=== PATIENT | male | born 1985 | race Caucasian/White ===

== ENCOUNTER 2023-11-26 10:42 | Emergency (ER) | payer MEDICARE, MEDICAID, SELFPAY ==
--- NOTE | ~2023-11-26 | XR_ITS ---
EXAMINATION: XR CHEST CLINICAL INFORMATION: Left frontal lower rib pain and chest pain beginning last night. COMPARISON: None available. TECHNIQUE: 2 views of the chest were obtained. FINDINGS: Heart, mediastinum, pulmonary vessels and lung manley within normal limits. Bony structures are intact. XR/XR chest 2V IMPRESSION: No acute cardiopulmonary disease
[2023-11-26 10:46] VITALS: BP 145/103; PULSE 109; RESP 19; TEMP 36.6; O2SAT 98; BMI 44.6
--- NOTE | 2023-11-26 10:58 | PC.NURSE ---
pt going directly to radiol. from [facility]
--- NOTE | 2023-11-26 11:07 | ECG_ITS ---
Test Reason : LEFT SIDED PAIN Blood Pressure : / mmHG Vent. Rate : 112 BPM Atrial Rate : 112 BPM P-R Int : 138 ms QRS Dur : 070 ms QT Int : 324 ms P-R-T Axes : 041 022 032 degrees QTc Int : 442 ms Artifact in tracing Sinus tachycardia possible Nonspecific ST and T wave abnormality inferior leads Otherwise normal ECG When compared to the previous EKG of 13 aug 2019, possible inferior changes but could also be related to artifact Referred By: Liliana Ramírez Electronically Signed By:DEEPTI MAXWELL
--- NOTE | 2023-11-26 11:08 | ED.GENADULT ---
HPI - General Adult General Chief complaint: General Medical Stated complaint: L Side Pain Time Seen by Provider: 11/26/23 10:57 Source: patient Mode of arrival: ambulatory Limitations: no limitations and language barrier ( [place]-speaking) History of Present Illness HPI narrative: patient reports 1 week of left upper quadrant abdominal pain, intermittent nausea associated with this. Had been progressively worsening. He does admit that last night he noticed he was developing a cough, which he attributes to his seasonal allergies, it is not clear whether the cough tends to make this pain worse or not. he admits to having tactile fever last night. When asked he does state he is having mid anterior chest pain as well, without shortness breath. He also reports urinary frequency and my urine smells sweet , denies hematuria or dysuria. Denies any known past medical history. Related Data Previous Rx's ?Medication ?Instructions ?Recorded famotidine 20 mg tablet 20 mg PO DAILY #7 tabs 11/26/23 sucralfate 1 gram tablet (Carafate) 1 g PO BID #14 tabs 11/26/23 Allergies Allergy/AdvReac Type Severity Reaction Status Date / Time shrimp Allergy Severe ANGIOEDEMA Verified 11/26/23 10:50 PEPPERONI Allergy Severe ANGIOEDEMA Uncoded 11/26/23 10:50 Review of Systems Review of Systems: Yes all other systems are reviewed and are negative PMFSH Past Medical History Attestation statement: The following information was validated with the patient. Source: old records reviewed Social History Social History Smoked in Last 30 Days: No Use of substances other than those prescribed or required for medical reasons: No Advance Directives: No Advance Directives Information Provided: Yes Physical Exam ED Vital Signs: Vital Signs - 24 hr 11/26/23 10:46 11/26/23 13:26 11/26/23 14:37 Temperature 98 F 98.3 F Pulse Rate 109 H 87 87 Respiratory Rate 19 18 18 Blood Pressure 145/103 H 121/81 121/81 Pulse Oximetry 98 98 98 Oxygen Delivery Method Room Air Room Air Room Air BMI result Body Mass Index 44.6 Appearance: Alert.?Oriented to person, place and time. No acute distress.?Normal affect. Eyes: Pupils equal, round and reactive to light.? ENT: Pharynx normal.?? Neck: Normal inspection.? Neck supple.?? CVS: Heart sounds normal. Mild tachycardia? Pulses normal.?? Respiratory: No respiratory distress.? Lung sounds clear to auscultation bilaterally?? Abdomen: Soft, round, with left upper quadrant tenderness upon palpation, Normoactive bowel sounds. No pulsatile mass. no CVA tenderness Skin: Skin warm and dry.? Normal skin color.?? Extremities: No lower extremity edema.? No calf ttp? Neuro: Moves all extremities spontaneously. Sensation intact bilaterally. CN II-XII intact. No focal neuro deficits. Ambulates with normal steady gait. Course Reevaluation(s) Reevaluation #1: Serum labs are overall unremarkable. Symptoms have resolved after taking GI cocktail. Suspect pain at this time to be most likely secondary to gastritis. Tolerating oral intake. Sent prescriptions to pharmacy, recommended outpatient follow-up with primary care provider. Discussed worrisome signs and symptoms that would warrant re-evaluation in the emergency department. All questions answered. Stable for discharge. Time: 13:43 Medications Administered Discontinued Medications Generic Name Dose Route Start Last Admin Trade Name Freq PRN Reason Stop Dose Admin Al Hydroxide/Mg Hydroxide 30 ml 11/26/23 11:14 11/26/23 11:39 Magnesium Hydrox/Alum Hydrox 30 Ml Oral.Susp PO 11/26/23 11:15 30 ml ONCE ONE Administration Famotidine 20 mg 11/26/23 11:14 11/26/23 11:39 Famotidine 20 Mg Tablet PO 11/26/23 11:15 20 mg ONCE ONE Administration Lidocaine HCl 15 ml 11/26/23 11:14 11/26/23 11:39 Lidocaine Hcl Viscous 2 % 15 Ml Solution MUCOUS MEM 11/26/23 11:15 15 ml ONCE ONE Administration Medical Decision Making Medical Decision Making [place] Narrative: patient is a 38-year-old male with no reported past medical history presenting to emergency department for evaluation of left upper quadrant abdominal pain, radiating to the lateral aspect for the past week. He does admit to a cough and subjective fevers which began last night he attributes to his seasonal allergies, and also reports concern for urinary frequency. Overall he appears well, nontoxic, is afebrile. He does have left upper quadrant tenderness upon palpation. LSCTA, Mildly tachycardic.Will obtain CBC to evaluate for leukocytosis/ anemia, CMP and lipase to evaluate for abnormal electrolytes /abnormal renal function/ abnormal hepatic/biliary function, EKG and troponin to evaluate for ischemia/ACS. Chest x-ray to evaluate for consolidation/ infiltrate/ mass/ pulmonary congestion and Urinalysis. Differential Diagnosis Differential Diagnoses: The differential diagnosis associated with the presentation includes ( gastritis, gastroenteritis, pancreatitis, pleurisy, ACS, pneumonia) Admission/Observation Consideration of admission/observation: Escalation of care including admission/observation considered ( see narrative above and course narrative for further detail) Lab Data MDM Lab Attestation statement: I reviewed the patient's lab results. ( see course narrative for further detail) urinalysis is without evidence of infection, no glucosuria, trace ketonuria. No leukocytosis or anemia. High sensitive troponin is below detectable limits. Viral panel is negative. No electrolyte derangement. No CHINO. No elevated transaminases. 11/26/23 11:53 11/26/23 12:39 Labs: Lab Results 11/26/23 11/26/23 11/26/23 Range/Units 10:58 11:09 11:18 WBC RBC Hgb Hct MCV MCH MCHC RDW Plt Count MPV Immature Gran % (Auto) Neut % (Auto) Lymph % (Auto) [place] % (Auto) Eos % (Auto) Baso % (Auto) Lymph # (Auto) [place] # (Auto) Eos # (Auto) Baso # (Auto) Abs Immat Gran (auto) Absolute Neuts (auto) Absolute Nucleated RBC Nucleated RBC % (auto) Neutrophils % (Manual) Band Neutrophils % Lymphocytes % (Manual) Atypical Lymphs % (Man) Monocytes % (Manual) Eosinophils % (Manual) Basophils % (Manual) Metamyelocytes % Myelocytes % Promyelocytes % Blast Cells % (Manual) Plasma Cell % (Manual) Abs Neuts (Manual) Lymphocytes # (Manual) Atyp Lymphs # (Manual) Monocytes # (Manual) Eosinophils # (Manual) Basophils # (Manual) Metamyelocytes # Myelocytes # Promyelocytes # Blast Cells # Plasma Cell # (Manual) Nucleated RBCs Hypersegmented Neuts Smudge Cells Toxic Granulation Toxic Vacuolation Dohle Bodies Jorge Rods WBC Morphology Comment Platelet Estimate Large Platelets Giant Platelets Plt Morphology Comment RBC Morphology Polychromasia Hypochromasia Basophilic Stippling Microcytosis Macrocytosis Spherocytes Pappenheimer Bodies Sickle Cells Target Cells Tear Drop Cells Ovalocytes Stomatocytes [place] Bodies Salome Cells Acanthocytes (Spur) Rouleaux Schistocytes Sodium (135-145) mmol/L Potassium (3.3-5.1) mmol/L Chloride (96-108) mmol/L Carbon Dioxide (22-29) mmol/L Anion Gap (12-20) BUN (9-16) mg/dL Creatinine (0.5-1.4) mg/dL Estim Creat Clear Calc Estimated GFR POC Glucose 129 H (60-115) mg/dL Random Glucose (60-115) mg/dL Calcium (8.4-10.2) mg/dL Total Bilirubin (0.0-1.0) mg/dL AST (5-37) U/L ALT (0-40) U/L Alkaline Phosphatase (39-117) U/L Troponin I High Sens (<3.5-35.0) ng/L Total Protein (6.5-8.0) g/dL Albumin (3.5-5.0) g/dL Lipase (8-78) U/L Urine Color Yellow Urine Appearance Clear Urine pH 5.5 (5.0-9.0) Ur Specific [place] 1.025 (1.005-1.025) Urine Protein Negative (Neg-Trace) mg/dL Urine Glucose (UA) Negative (Negative) mg/dL Urine Ketones Trace (Negative) mg/dL Urine Blood Negative (Negative) Urine Nitrite Negative (Negative) Ur Leukocyte Esterase Negative (Negative) Influenza Type A (PCR) NEGATIVE (Negative) Influenza Type B (PCR) NEGATIVE (Negative) RSV RNA Qual (PCR) NEGATIVE (Negative) SARS-CoV-2 RNA (RT-PCR) NEGATIVE (Negative) 11/26/23 11/26/23 11/26/23 Range/Units 11:30 11:53 12:39 WBC Not Reportable 5.7 RBC TNP 4.91 Hgb TNP 14.3 Hct TNP 42.8 MCV TNP 87.2 MCH TNP 29.1 MCHC TNP 33.4 RDW TNP 12.9 Plt Count Not Reportable 242 MPV Not Reportable 10.0 Immature Gran % (Auto) Cancelled 0.2 Neut % (Auto) Cancelled 44.4 L Lymph % (Auto) Cancelled 32.9 [place] % (Auto) Cancelled 14.5 H Eos % (Auto) Cancelled 7.0 H Baso % (Auto) Cancelled 1.0 Lymph # (Auto) Cancelled 1.9 [place] # (Auto) Cancelled 0.8 Eos # (Auto) Cancelled 0.4 Baso # (Auto) Cancelled 0.1 Abs Immat Gran (auto) Cancelled 0.01 Absolute Neuts (auto) Cancelled 2.5 Absolute Nucleated RBC Not Reportable 0.000 Nucleated RBC % (auto) Not Reportable 0.0 Neutrophils % (Manual) TNP Band Neutrophils % TNP Lymphocytes % (Manual) TNP Atypical Lymphs % (Man) TNP Monocytes % (Manual) TNP Eosinophils % (Manual) TNP Basophils % (Manual) TNP Metamyelocytes % TNP Myelocytes % TNP Promyelocytes % TNP Blast Cells % (Manual) TNP Plasma Cell % (Manual) TNP Abs Neuts (Manual) TNP Lymphocytes # (Manual) TNP Atyp Lymphs # (Manual) TNP Monocytes # (Manual) TNP Eosinophils # (Manual) TNP Basophils # (Manual) TNP Metamyelocytes # TNP Myelocytes # TNP Promyelocytes # TNP Blast Cells # TNP Plasma Cell # (Manual) TNP Nucleated RBCs TNP Hypersegmented Neuts TNP Smudge Cells TNP Toxic Granulation TNP Toxic Vacuolation TNP Dohle Bodies TNP Jorge Rods TNP WBC Morphology Comment TNP Platelet Estimate TNP Large Platelets TNP Giant Platelets TNP Plt Morphology Comment TNP RBC Morphology TNP Polychromasia TNP Hypochromasia TNP Basophilic Stippling TNP Microcytosis TNP Macrocytosis TNP Spherocytes TNP Pappenheimer Bodies TNP Sickle Cells TNP Target Cells TNP Tear Drop Cells TNP Ovalocytes TNP Stomatocytes TNP [place]ars[place] Bodies TNP Salome Cells TNP Acanthocytes (Spur) TNP Rouleaux TNP Schistocytes TNP Sodium 139 (135-145) mmol/L Potassium 3.8 (3.3-5.1) mmol/L Chloride 107 (96-108) mmol/L Carbon Dioxide 27 (22-29) mmol/L Anion Gap 9 L (12-20) BUN 11 (9-16) mg/dL Creatinine 0.81 (0.5-1.4) mg/dL Estim Creat Clear Calc 151.0 Estimated GFR > 60 POC Glucose (60-115) mg/dL Random Glucose 80 (60-115) mg/dL Calcium 9.3 (8.4-10.2) mg/dL Total Bilirubin 0.4 (0.0-1.0) mg/dL AST 22 (5-37) U/L ALT 25 (0-40) U/L Alkaline Phosphatase 116 (39-117) U/L Troponin I High Sens < 2.7 (<3.5-35.0) ng/L Total Protein 8.5 H (6.5-8.0) g/dL Albumin 3.8 (3.5-5.0) g/dL Lipase 22 (8-78) U/L Urine Color Urine Appearance Urine pH (5.0-9.0) Ur Specific [place] (1.005-1.025) Urine Protein (Neg-Trace) mg/dL Urine Glucose (UA) (Negative) mg/dL Urine Ketones (Negative) mg/dL Urine Blood (Negative) Urine Nitrite (Negative) Ur Leukocyte Esterase (Negative) Influenza Type A (PCR) (Negative) Influenza Type B (PCR) (Negative) RSV RNA Qual (PCR) (Negative) SARS-CoV-2 RNA (RT-PCR) (Negative) Independent Interpretation I performed an independent interpretation of an: EKG and Plain X-Ray ( no infiltrate, no pleural effusions) Interpretation: Rate: 112 Rhythm:? sinus tachycardia Normal P waves.? Normal SO.?? Normal QRS complex.?? ST T wave :?? no ST elevation, no ST depression qTC: 442 prior studies:? August 2019 The study has been interpreted contemporaneously by me. Radiology Impression Discussion of test interpretation with radiology: I have reviewed the radiologist's reading. Radiologist Impression: XR/XR chest 2V IMPRESSION: No acute cardiopulmonary disease Discharge Plan Discharge Clinical Impression: Gastritis Patient Disposition: Home, Self-Care Instructions: Gastritis (ED) Additional Instructions: take the medications as prescribed which were sent to your pharmacy. Contact your primary care provider to arrange for a follow-up visit within 3 days. Return back to emergency department any new or worsening symptoms or concerns. Prescriptions: New sucralfate [Carafate] 1 gram tablet 1 g PO BID Qty: 14 0RF famotidine 20 mg tablet 20 mg PO DAILY Qty: 7 0RF Referrals: Derek Cuellar MD [Primary Care Provider] - Interventions: ED Discharge Assessment Last Done: 11/26/23 14:37 Discharge Date/Time: 11/26/23 14:40 Print Language: [place]
[2023-11-26 11:14] LABS: Glucose, Whole Blood 129 mg/dL (60-115)
[2023-11-26 11:30] LABS: Appearance Urine Clear; Color Urine Yellow; Glucose Urine UA Negative (Negative); Leukocyte Esterase Urine Negative (Negative); Nitrite Urine Negative (Negative); PH 5.5 (5.0-9.0); Specific Gravity - Urine 1.025 (1.005-1.025); Urine Blood Negative (Negative); Urine Ketones Trace mg/dL (Negative); Urine Protein Negative (Neg-Trace)
--- NOTE | 2023-11-26 11:30 | PC.NURSE ---
pt put finger through the yellow label on his urine cup and stuck finger with needle. scant bleeding. 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 able to move finger w/o issue. +CMS
[2023-11-26] MEDS: Lidocaine HCl Viscous 2 % 15 ML SOLUTION MUCOUS MEM (11:39)
[2023-11-26] MEDS: Magnesium Hydrox/Alum Hydrox 30 ML ORAL.SUSP PO (11:39)
[2023-11-26] MEDS: Famotidine 20 MG TABLET PO (11:39)
[2023-11-26 11:52] LABS: Influenza A PCR NEGATIVE (Negative); Influenza B PCR NEGATIVE (Negative); Resp Syncy Virus RNA Qual PCR NEGATIVE (Negative); SARS COV2 PCR INHOUSE NEGATIVE (Negative)
[2023-11-26 11:58] LABS: MANUAL DIFF FLAG NO
[2023-11-26 12:02] LABS: Basophils Absolute Auto 0.1 X10*3/uL (0.0-0.2); Eosinophils Absolute Auto 0.4 X10*3/uL (0.0-0.4); Hematocrit 42.8 % (42.0-52.0); Hemoglobin 14.3 g/dl (14.0-18.0); Imm Gran Abs Auto 0.01 X10*3/uL (0.00-0.03); Imm Gran Pct Auto 0.2 % (0.0-0.4); Lymphocytes Absolute Auto 1.9 X10*3/uL (1.2-4.9); Lymphocytes Percent Auto 32.9 % (20-40); Mean Corpuscular HGB Conc 33.4 g/dl (31.0-36.0); Mean Corpuscular Hemoglobin 29.1 pg (27.0-33.0); Mean Corpuscular Volume 87.2 fL (80.0-98.0); Monocytes Absolute Auto 0.8 X10*3/uL (0.1-1.2); Monocytes Percent Auto 14.5 % (2-11); Neutrophils Absolute Auto 2.5 x10*3/uL (2.0-8.3); Neutrophils Percent Auto 44.4 % (45-73); Platelet Count 242 X10*3/uL (160-400); Red Blood Count 4.91 X10*6/uL (4.60-5.80); Red Cell Distribution Width 12.9 % (11.0-16.0); White Blood Count 5.7 X10*3/uL (4.8-10.8)
[2023-11-26 12:02] LABS: Troponin-I High Sensitivity < 2.7 ng/L (<3.5-35.0)
[2023-11-26 13:08] LABS: Alanine Aminotransferase 25 U/L (0-40); Albumin Level 3.8 g/dL (3.5-5.0); Alkaline Phosphatase 116 U/L (39-117); Anion Gap 9 (12-20); Aspartate Amino Transferase 22 U/L (5-37); Blood Urea Nitrogen 11 mg/dL (9-16); Calcium 9.3 mg/dL (8.4-10.2); Carbon Dioxide 27 mmol/L (22-29); Chloride 107 mmol/L (96-108); Estimated Glomerular Filt Rate > 60; Glucose Random 80 mg/dL (60-115); Lipase 22 U/L (8-78); Potassium 3.8 mmol/L (3.3-5.1); Sodium 139 mmol/L (135-145); Total Protein 8.5 g/dL (6.5-8.0)
[2023-11-26 13:21] LABS: Bilirubin Total 0.4 mg/dL (0.0-1.0)
[2023-11-26 13:26] VITALS: BP 121/81; PULSE 87; RESP 18; O2SAT 98
--- NOTE | 2023-11-26 13:39 | PC.NURSE ---
pt put finger through the yellow label on his urine cup and stuck finger with needle. scant bleeding. 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 able to move finger w/o issue. +CMS
[2023-11-26 14:37] VITALS: BP 121/81; PULSE 87; RESP 18; TEMP 36.8; O2SAT 98
== END 2023-11-26 14:40 | disposition home or self-care (01) ==
PROVIDERS: Nurse Practitioner Family; Emergency Provider Emergency Medicine; PCP Internal Medicine
DX: K29.70 Gastritis, unspecified, without bleeding (principal); R35.0 Frequency of micturition; Z03.818 Encounter for observation for suspected exposure to other biological agents ruled out
CPT/HCPCS: 0241U; 36415; 71046; 80053; 81003; 82947; 83690; 84484; 85007; 85025; 85027; 93005; 99283; 99285

== ENCOUNTER → 2023-11-26 11:07 | Outpatient (BNV) | payer MEDICARE, MEDICAID, SELFPAY | PROVIDERS: Emergency Provider Emergency Medicine; PCP Internal Medicine; Visit Provider Internal Medicine | DX: R00.0 Tachycardia, unspecified (principal) | CPT/HCPCS: 93010 ==

== ENCOUNTER 2024-01-04 12:26 | Emergency (ER) | payer OTHER, SELFPAY ==
--- NOTE | ~2024-01-04 | XR_ITS ---
EXAMINATION: LEFT ANKLE, LEFT FOOT CLINICAL INFORMATION: Injury with ankle and foot COMPARISON: None available. TECHNIQUE: 3 views left ankle, 3 views left foot. FINDINGS: No significant bone, joint or soft tissue injury is seen. There is no evidence of a fracture or joint effusion. XR/XR foot LT min 3V IMPRESSION: Negative exam.
--- NOTE | ~2024-01-04 | XR_ITS ---
EXAMINATION: LEFT ANKLE, LEFT FOOT CLINICAL INFORMATION: Injury with ankle and foot COMPARISON: None available. TECHNIQUE: 3 views left ankle, 3 views left foot. FINDINGS: No significant bone, joint or soft tissue injury is seen. There is no evidence of a fracture or joint effusion. XR/XR ankle LT min 3V IMPRESSION: Negative exam.
[2024-01-04 12:45] VITALS: BP 126/77; PULSE 95; RESP 18; TEMP 36.3; O2SAT 96; BMI 45.6
--- NOTE | 2024-01-04 12:45 | ED_ITS ---
HPI - General Adult General Chief complaint: Extremity Injury, Lower Stated complaint: swollen feet Time Seen by Provider: 01/04/24 14:04 Source: patient Mode of arrival: ambulatory Limitations: no limitations History of Present Illness ED Provider: RAMANDEEP Melgar [facility] narrative: Patient is a 38-year-old male presenting to the emergency department with complaint of left ankle pain and swelling after he twisted it while leaving work yesterday. Denies any weakness, numbness, tingling. States pain is worse to lateral aspect of ankle. Has not taken any [id number] medications for s ymptoms. MD complaint: Left ankle pain Onset (ago): hour(s) Location: left and lower extremity Severity: moderate Quality: aching Pain Consistency: constant Relieving factors: rest Exacerbating factors: movement Associated symptoms: denies other symptoms Treatments prior to arrival: none Related Data Previous Rx's ?Medication ?Instructions ?Recorded famotidine 20 mg tablet 20 mg PO DAILY #7 tabs 11/26/23 sucralfate 1 gram tablet (Carafate) 1 g PO BID #14 tabs 11/26/23 Allergies Allergy/AdvReac Type Severity Reaction Status Date / Time shrimp Allergy Severe ANGIOEDEMA Verified 01/04/24 12:45 Review of Systems Review of Systems: As per HPI. Yes all other systems are reviewed and are negative Constitutional: Constitutional: Reports as per HPI [facility] Social History Social History Advance Directives: No Do you have a plan to hurt others: No Plan Physical Exam ED Vital Signs: Vital Signs - 24 hr 01/04/24 12:45 Temperature 97.3 F Pulse Rate 95 Respiratory Rate 18 Blood Pressure 126/77 Pulse Oximetry 96 Oxygen Delivery Method Room Air BMI result Body Mass Index 45.6 Vital signs have been reviewed and appear to be correct. Blood pressure normal. Heart rate normal. Respiratory rate normal. Temperature normal. Oxygen saturation normal. Const General: cooperative, healthy appearing and no acute distress Orientation/consciousness: oriented to person, oriented to place, oriented to time and patient oriented x3 Limitations: no limitations HENMT Head: Yes normocephalic and Yes atraumatic Ears: external ears normal General nose exam: Normal external nose present Face and sinus: Yes face symmetric Mouth: oropharynx normal and moist mucous membranes Throat: Yes uvula midline Eyes Pupils: Equal, round and reactive pupils present Neck Neck: Yes normal visual inspection and Yes supple Resp Effort & Inspection: normal respiratory effort and able to speak in complete sentences Auscultation: clear to auscultation bilaterally Cardio Rate: regular rate Rhythm: regular rhythm Heart sounds: S1 normal heart sound present and S2 normal heart sound present GI Palpation (GI): Soft to palpation and nontender Auscultation: normoactive bowel sounds General: Yes no CVA tenderness Back/Spine/Pelvis Back: no CVA tenderness Skin General skin exam: elasticity normal and turgor normal Neuro General: oriented to person, oriented to place, oriented to time, patient oriented x3, moves all extremities, no focal motor deficits and CN's II-XI intact bilaterally Cranial nerves: Yes Equal, round and reactive pupils present Cognition (Neuro): normal cognition Extrem General: Yes full ROM, Yes no pedal edema and Yes no calf tenderness Left lower extremity: ankle Details: tenderness Location: of the lateral malleolus, swelling Details: laterally and normal ROM; no ecchymosis and achilles tendon exam normal and foot Details: toes with normal ROM and vascular exam Details: dorsalis pedis pulse present and posterior tibial pulse present Psych Mental Status: mental status grossly normal Affect: normal affect Thought process: Normal thought process present Course Course Course Narrative: RME performed by Raeann Hameed PA-C. Patient is a 38 year old assigned male at presenting to the emergency department with left foot and ankle pain. Detailed physical exam and review of systems are deferred to the information technology coordinator. Imaging ordered. Patient placed back in the waiting room pending room availability and results. Medical Decision Making Medical Decision Making MDM Narrative: Patient is a 38-year-old male presenting to the emergency department with complaint of left ankle pain and swelling after he twisted it while leaving work yesterday. On exam patient is awake, A+Ox3, VS WNL, afebrile, normal neurological exam without focal deficits, physical exam findings as above. Given reported symptoms and physical exam findings, initial differential includes left ankle strain, sprain, fracture. X-ray left ankle and foot notable for no acute fractures. My interpretation is in agreement with the radiologist's interpretation. Patient updated on results and all questions answered. Advised patient to alternate Tylenol and ibuprofen, keep the ankle elevated while at rest, apply ice intermittently. Patient provided with air spl int for support. Will refer to ortho for any ongoing symptoms. Return precautions discussed at bedside. Patient verbalized understanding of and agreement with plan. Differential Diagnosis Differential Diagnoses: The differential diagnosis associated with the presentation includes As per MDM. Independent Interpretation I performed an independent interpretation of an: Plain X-Ray Interpretation: No acute fractures left foot or ankle Radiology Impression Discussion of test interpretation with radiology: I have reviewed the radiologist's reading. Radiologist Impression: XR/XR ankle LT min 3V IMPRESSION: Negative exam. XR/XR foot LT min 3V IMPRESSION: Negative exam. External Record Review External record reviewed: Inpatient record, Office record and Outpatient record Discharge Plan Discharge Clinical Impression: Left ankle sprain Patient Disposition: Home, Self-Care Instructions: R.I.C.E. Treatment (ED), Sprain (ED), Ankle Sprain (DC), Ankle Stirrup Splint (ED), Ice Pack Application (ED) Additional Instructions: You have been evaluated in the emergency department today for ankle pain. Your evaluation did not find evidence of medical conditions requiring emergent intervention at this time. We have provided a splint for you to use while your ankle heals. Please rest, ice, and elevate your ankle, and resume normal act ivities as tolerated. We recommend you take 600mg ibuprofen every 6 hours or 650mg Tylenol every 6 hours as needed for pain. If needed you can alternate these medications as they take 1 medication every 3 hours. For instance at noon take ibuprofen, then at 3:00 p.m. take Tylenol, then at 6:00 p.m. take ibuprofen. Please schedule an appointment for follow-up with your primary care provider this week. Return to the emergency department if you experience worsening pain, numbness, tingling, change of color in your foot/toes, or any other concerning symptoms. Prescriptions: No Action sucralfate [Carafate] 1 gram tablet 1 g PO BID Qty: 14 0RF famotidine 20 mg tablet 20 mg PO DAILY Qty: 7 0RF Referrals: [facility] [Provider Group] Print Language: Tamazight
[2024-01-04 16:01] VITALS: BP 126/79; PULSE 86; RESP 20; TEMP 36.7; O2SAT 97
[2024-01-04 16:03] VITALS: BP 126/79; PULSE 86; RESP 20; TEMP 36.7; O2SAT 97
== END 2024-01-04 16:03 | disposition home or self-care (01) ==
PROVIDERS: Emergency Provider Emergency Medicine; PCP Internal Medicine
DX: S93.402A Sprain of unspecified ligament of left ankle, initial encounter (principal); X50.1XXA Overexertion from prolonged static or awkward postures, initial encounter; Y93.9 Activity, unspecified; Y92.9 Unspecified place or not applicable; Y99.0 Civilian activity done for income or pay; M25.572 Pain in left ankle and joints of left foot
CPT/HCPCS: 73610; 73630; 99283; 99284

== ENCOUNTER 2024-01-07 09:31 | Emergency (ER) | payer MEDICARE, MEDICAID, SELFPAY ==
--- NOTE | ~2024-01-07 | XR_ITS ---
EXAMINATION: XR CHEST CLINICAL INFORMATION: Chest pain. COMPARISON: 11/26/2023 TECHNIQUE: Frontal view of the chest was obtained. FINDINGS: Lungs are well expanded. No focal consolidation. No pleural effusion. Cardiac silhouette is unchanged. XR/XR chest 1V IMPRESSION: No acute abnormality.
--- NOTE | 2024-01-07 09:32 | ECG_ITS ---
Test Reason : CHEST PAIN Blood Pressure : / mmHG Vent. Rate : 091 BPM Atrial Rate : 091 BPM P-R Int : 132 ms QRS Dur : 074 ms QT Int : 354 ms P-R-T Axes : 021 024 041 degrees QTc Int : 435 ms Normal sinus rhythm Normal ECG When compared with ECG of 26-NOV-2023 11:24, No significant change was found Referred By: Generic ED Physician Electronically Signed By:DEEPTI MAXWELL
[2024-01-07 09:41] VITALS: BP 138/80; PULSE 88; RESP 20; TEMP 37; O2SAT 97; BMI 45.6
[2024-01-07 09:43] LABS: MANUAL DIFF FLAG NO
[2024-01-07 09:45] LABS: Basophils Absolute Auto 0.1 X10*3/uL (0.0-0.2); Eosinophils Absolute Auto 0.7 X10*3/uL (0.0-0.4); Eosinophils Percent Auto 9.9 % (0-4); Hematocrit 41.5 % (42.0-52.0); Hemoglobin 13.9 g/dl (14.0-18.0); Imm Gran Abs Auto 0.01 X10*3/uL (0.00-0.03); Imm Gran Pct Auto 0.1 % (0.0-0.4); Lymphocytes Absolute Auto 2.4 X10*3/uL (1.2-4.9); Lymphocytes Percent Auto 33.6 % (20-40); Mean Corpuscular HGB Conc 33.5 g/dl (31.0-36.0); Mean Corpuscular Hemoglobin 29.4 pg (27.0-33.0); Mean Corpuscular Volume 87.7 fL (80.0-98.0); Mean Platelet Volume 9.9 fL (9.4-12.4); Monocytes Absolute Auto 0.5 X10*3/uL (0.1-1.2); Neutrophils Absolute Auto 3.5 x10*3/uL (2.0-8.3); Neutrophils Percent Auto 48.4 % (45-73); Platelet Count 248 X10*3/uL (160-400); Red Blood Count 4.73 X10*6/uL (4.60-5.80); Red Cell Distribution Width 13.1 % (11.0-16.0); White Blood Count 7.2 X10*3/uL (4.8-10.8)
[2024-01-07 10:01] LABS: Alanine Aminotransferase 23 U/L (0-40); Albumin Level 3.8 g/dL (3.5-5.0); Alkaline Phosphatase 115 U/L (39-117); Anion Gap 11 (12-20); Aspartate Amino Transferase 23 U/L (5-37); Bilirubin Direct 0.2 mg/dL (0.0-0.5); Bilirubin Total 0.4 mg/dL (0.0-1.0); Blood Urea Nitrogen 14 mg/dL (9-16); Calcium 9.1 mg/dL (8.4-10.2); Carbon Dioxide 26 mmol/L (22-29); Chloride 109 mmol/L (96-108); Creatinine Clr Calc Pharmacy 147.5; Estimated Glomerular Filt Rate > 60; Glucose Random 101 mg/dL (60-115); Lipase 32 U/L (8-78); Potassium 3.9 mmol/L (3.3-5.1); Sodium 142 mmol/L (135-145)
[2024-01-07 10:08] LABS: COVID-19 Test Negative (Negative); IDNOW Serial# 08D9AD1C
[2024-01-07 10:09] LABS: Troponin-I High Sensitivity < 2.7 ng/L (<3.5-35.0)
[2024-01-07 10:09] LABS: IDNOW Serial# 152EDE1D; Influenza A Negative (Negative); Influenza B2 Negative (Negative)
[2024-01-07 10:52] VITALS: BP 112/70; PULSE 83; RESP 16; O2SAT 97
--- NOTE | 2024-01-07 11:24 | ED_ITS ---
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 Worse with movements and lifting/touching chest. He has no known CAD, no travel or procedures. Takes nyquil chronically for his nasal congestion. He notes he lifts a lot at work and it makes it hurt more MD complaint: chest pain Onset (ago): week(s) (1) Timing of current episode: episodic Prior episodes: Yes Onset: during rest Pain location: left chest Pain radiation: none Severity: moderate Quality: aching Relieving factors: rest Exacerbating factors: palpation and movement Associated symptoms: cough Treatment prior to arrival: other (nyquil) Related Data Previous Rx's ?Medication ?Instructions ?Recorded famotidine 20 mg tablet 20 mg PO DAILY #7 tabs 11/26/23 sucralfate 1 gram tablet (Carafate) 1 g PO BID #14 tabs 11/26/23 albuterol sulfate 90 mcg/actuation 2 puff inhalation QID PRN 01/07/24 aerosol inhaler shortness of breath or wheezing #6.7 grams cyclobenzaprine 10 mg tablet 10 mg PO TID PRN muscle spasm #20 01/07/24 tabs fluticasone propionate 50 1 spray intranasal DAILY PRN 01/07/24 mcg/actuation nasal allergy symptoms #16 grams spray,suspension prednisone 20 mg tablet 40 mg (2 x 20 mg) PO DAILY 5 days 01/07/24 #10 tabs Allergies Allergy/AdvReac Type Severity Reaction Status Date / Time shrimp Allergy Severe ANGIOEDEMA Verified 01/07/24 09:43 Review of Systems 2 Review of Systems: Constitutional : No Weight loss, No Fever, No Chills ENT/Mouth : No sore throat, No Rhinorrhea Eyes: No Eye Pain, No Swelling Cardiovascular : pos Chest Pain, no SOB, no Dyspnea on Exertion, No Orthopnea, No Edema, No Palpitations Respiratory : pos Cough, No Sputum Gastrointestinal : no Nausea, No Vomiting, No Diarrhea, No abdominal Pain, No Hematochezia, No Melena Genitourinary : No Dysuria, No Urinary Frequency Musculoskeletal : No joint pain, No Myalgias, No Joint Swelling Skin : No Skin Lesions, No rash Neuro : No Weakness, No Numbness, No Dizziness, No Headache Psych : No Anxiety/Panic, No Depression All other systems reviewed and are negative [facility] Past Medical History Attestation statement: The following information was validated with the patient. Source: old records reviewed Medical History GERD (gastroesophageal reflux disease) Social History Social History Advance Directives: No Advance Directives Information Provided: No Do you have a plan to hurt others: No Plan Physical Exam 2 Vital Signs: Vital Signs: Last Vital Signs Temp 98.6 F 01/07/24 09:41 Pulse 83 01/07/24 10:52 Resp 16 01/07/24 10:52 BP 112/70 01/07/24 10:52 Pulse Ox 97 01/07/24 10:52 O2 Del Method Room Air 01/07/24 10:52 BMI result Body Mass Index 45.6 Appearance: Alert. Oriented X3. No acute distress. Eyes: Pupils equal, round and reactive to light. ENT: Pharynx normal. Neck: Normal inspection. Neck supple. CVS: Normal heart rate and rhythm. Pulses normal. Chest: ttp along L chest wall and pectoral reproduces pain Respiratory: No respiratory distress. Breath sounds normal. Abdomen: Soft and nontender. Skin: Skin warm and dry. Normal skin color. Normal skin turgor. Extremities: No lower extremity edema. No calf ttp Neuro: Oriented X 3. No motor deficit. No sensory deficit. Medical Decision Making Medical Decision Making [facility] Narrative: 38 yo male with PMH of gastritis here with c/o atypical chest pain that is reproduceable in nature has URI and allergy symptoms as well - he has no known ACS risk factors, pulses intact doubt dissection, PERC negative doubt VTE will obtain labs, viral panel, trop and EKG x 1, CXR. Start on INH, prednisone, zyrtec and flonase, refer to PCP Differential Diagnosis Differential Diagnoses: The differential diagnosis associated with the presentation includes chest wall pain, URI, allergies, costochondritis PERC negative doubt VTE pulses intact doubt dissection EKG and trop flat > 6 hours of pain atypical doubt ACS Admission/Observation Consideration of admission/observation: Escalation of care including admission/observation considered work up negative stable for DC Lab Data MDM Lab Attestation statement: I reviewed the patient's lab results. 01/07/24 09:39 01/07/24 09:39 Labs: Lab Results 01/07/24 01/07/24 Range/Units 09:39 09:45 WBC 7.2 (4.8-10.8) X10*3/uL RBC 4.73 (4.60-5.80) X10*6/uL Hgb 13.9 L (14.0-18.0) g/dl Hct 41.5 L (42.0-52.0) % MCV 87.7 (80.0-98.0) fL MCH 29.4 (27.0-33.0) pg MCHC 33.5 (31.0-36.0) g/dl RDW 13.1 (11.0-16.0) % Plt Count 248 (160-400) X10*3/uL MPV 9.9 (9.4-12.4) fL Immature Gran % (Auto) 0.1 (0.0-0.4) % Neut % (Auto) 48.4 (45-73) % Lymph % (Auto) 33.6 (20-40) % Ritchie % (Auto) 7.0 (2-11) % Eos % (Auto) 9.9 H (0-4) % Baso % (Auto) 1.0 (0-2) % Lymph # (Auto) 2.4 (1.2-4.9) X10*3/uL Ritchie # (Auto) 0.5 (0.1-1.2) X10*3/uL Eos # (Auto) 0.7 H (0.0-0.4) X10*3/uL Baso # (Auto) 0.1 (0.0-0.2) X10*3/uL Abs Immat Gran (auto) 0.01 (0.00-0.03) X10*3/uL Absolute Neuts (auto) 3.5 (2.0-8.3) x10*3/uL Absolute Nucleated RBC 0.000 (0.0-0.012) X10*3/uL Nucleated RBC % (auto) 0.0 (0.0-0.2) /100WBC Sodium 142 (135-145) mmol/L Potassium 3.9 (3.3-5.1) mmol/L Chloride 109 H (96-108) mmol/L Carbon Dioxide 26 (22-29) mmol/L Anion Gap 11 L (12-20) BUN 14 (9-16) mg/dL Creatinine 0.84 (0.5-1.4) mg/dL Estim Creat Clear Calc 147.5 Estimated GFR > 60 Random Glucose 101 (60-115) mg/dL Calcium 9.1 (8.4-10.2) mg/dL Total Bilirubin 0.4 (0.0-1.0) mg/dL Direct Bilirubin 0.2 (0.0-0.5) mg/dL AST 23 (5-37) U/L ALT 23 (0-40) U/L Alkaline Phosphatase 115 (39-117) U/L Troponin I High Sens < 2.7 (<3.5-35.0) ng/L Total Protein 8.0 (6.5-8.0) g/dL Albumin 3.8 (3.5-5.0) g/dL Lipase 32 (8-78) U/L COVID-19 (TILA) Negative (Negative) COVID-19 Clin Com See Note Influenza Type A (SIMI) Negative (Negative) Influenza Type B (SIMI) Negative (Negative) Influenza A & B Note See Note Independent Interpretation I performed an independent interpretation of an: EKG and Plain X-Ray (normal ) Interpretation: Rate: 91 Rhythm: NSR [place]: normal Normal P waves. Normal SO. Normal QRS complex. ST T wave : no TRACY, flat t wave III and aVF qTC: 435 prior studies: no acute ischemia The study has been interpreted contemporaneously by me. . Radiology Impression Discussion of test interpretation with radiology: I have reviewed the radiologist's reading. External Record Review External record reviewed: Inpatient record Prescription Management I considered prescription management with: Other Discharge Plan Discharge Clinical Impression: Atypical chest pain, Allergic rhinitis, Acute costochondritis Patient Disposition: Home, Self-Care Instructions: Costochondritis (ED), Allergic Rhinitis (ED), Chest Wall Pain (ED) Additional Instructions: return for worsening symptoms, pain, difficulty breathing or any other concerns. can take zyrtec 10mg over the counter for allergies Prescriptions: New cyclobenzaprine 10 mg tablet 10 mg PO TID PRN (Reason: muscle spasm) Qty: 20 0RF albuterol sulfate 90 mcg/actuation HFA aerosol inhaler 2 puff inhalation QID PRN (Reason: shortness of breath or wheezing) Qty: 6.7 0RF prednisone 20 mg tablet 40 mg PO DAILY 5 Days Qty: 10 0RF fluticasone propionate 50 mcg/actuation spray,suspension 1 spray intranasal DAILY PRN (Reason: allergy symptoms) Qty: 16 1RF Rx Instructions: administer into each nostril No Action sucralfate [Carafate] 1 gram tablet 1 g PO BID Qty: 14 0RF famotidine 20 mg tablet 20 mg PO DAILY Qty: 7 0RF Stand Alone Forms: Work/School Release Print Language: Irish
[2024-01-07 12:00] VITALS: BP 123/78; PULSE 78; RESP 19; TEMP 36.5; O2SAT 97
== END 2024-01-07 13:30 | disposition home or self-care (01) ==
PROVIDERS: Emergency Provider Emergency Medicine; PCP Internal Medicine
DX: R07.89 Other chest pain (principal); J30.9 Allergic rhinitis, unspecified; M94.0 Chondrocostal junction syndrome [Tietze]; Z11.52 Encounter for screening for COVID-19
CPT/HCPCS: 36415; 71045; 80048; 80076; 83690; 84484; 85025; 87502; 87635; 93005; 99283

== ENCOUNTER → 2024-01-07 09:32 | Outpatient (BNV) | payer MEDICARE, MEDICAID, SELFPAY | PROVIDERS: Emergency Provider Emergency Medicine; PCP Internal Medicine; Visit Provider Internal Medicine | DX: R07.9 Chest pain, unspecified (principal) | CPT/HCPCS: 93010 ==

== ENCOUNTER 2024-02-22 18:26 | Emergency (ER) | payer MEDICARE, MEDICAID, SELFPAY ==
--- NOTE | ~2024-02-22 | XR_ITS ---
EXAMINATION: XR KNEE, LEFT CLINICAL INFORMATION: Pain. COMPARISON: None available. TECHNIQUE: Four views of the left knee. FINDINGS: No acute fracture or dislocation. Joint spaces are maintained. Small joint effusion. No unexpected radiopaque foreign bodies. XR/XR knee LT 4V IMPRESSION: No acute fracture or dislocation. Small joint effusion.
[2024-02-22 19:33] VITALS: BP 129/90; PULSE 90; RESP 18; TEMP 36.8; O2SAT 98; BMI 44.5
--- NOTE | 2024-02-22 19:34 | ED_ITS ---
HPI - Extremity Injury (Lower) General Chief Complaint: Extremity Injury, Lower Stated Complaint: L knee pain Time Seen by Provider: 02/22/24 20:49 Source: patient Mode of arrival: ambulatory Limitations: no limitations History of Present Illness ED Provider: Dr. Rachel Butler HPI Narrative: Patient comes to the emergency room complaining of left knee pain and swelling that started about a week ago. Patient states that 1 week ago, while he was on his lunch break, patient missed a step, felt like his knee got sprain. Patient states that he has been trying to walk on it and bear weight. However, the pain is gradually becoming much worse and the knees swollen now. Patient states that he can barely bend the knee. Related Data Previous Rx's ?Medication ?Instructions ?Recorded famotidine 20 mg tablet 20 mg PO DAILY #7 tabs 11/26/23 sucralfate 1 gram tablet (Carafate) 1 g PO BID #14 tabs 11/26/23 albuterol sulfate 90 mcg/actuation 2 puff inhalation QID PRN 01/07/24 aerosol inhaler shortness of breath or wheezing #6.7 grams cyclobenzaprine 10 mg tablet 10 mg PO TID PRN muscle spasm #20 01/07/24 tabs fluticasone propionate 50 1 spray intranasal DAILY PRN 01/07/24 mcg/actuation nasal allergy symptoms #16 grams spray,suspension prednisone 20 mg tablet 40 mg (2 x 20 mg) PO DAILY 5 days 01/07/24 #10 tabs ibuprofen 600 mg tablet 600 mg PO QID PRN fever or pain 02/22/24 #20 tabs tramadol 50 mg tablet 50 mg PO BID PRN pain #6 tabs 02/22/24 Allergies Allergy/AdvReac Type Severity Reaction Status Date / Time shrimp Allergy Severe ANGIOEDEMA Verified 02/22/24 19:36 Review of Systems Review of Systems: Constitutional : No Weight loss, No Fever, No Chills, No Night Sweats, No Fatigue, No Malaise ENT/Mouth : No Hearing loss, No Ear Pain, No Nasal Congestion, No Sinus Pain, No Hoarseness, No sore throat, No Rhinorrhea, No Swallowing Difficulty Eyes: No Eye Pain, No Swelling, No Redness, No Foreign Body, No Discharge, No Vision Changes Cardiovascular : No Chest Pain, No SOB, No Dyspnea on Exertion, No Orthopnea, No Edema, No Palpitations Respiratory : No Cough, No Sputum, No Wheezing, No Smoke Exposure, No Dyspnea Gastrointestinal : No Nausea, No Vomiting, No Diarrhea, No Constipation, No abdominal Pain, No Hematochezia, No Melena Genitourinary : no irregular bleeding, No Dysuria, No Urinary Frequency, No Hematuria, No Urinary Incontinence, No Urgency, No Flank Pain, No Urinary Flow Changes, No Hesitancy Musculoskeletal : Complaining of left knee pain and swelling, No Myalgias, No Joint Swelling Skin : No Skin Lesions, No rash Neuro : No Weakness, No Numbness, No Paresthesias, No Loss of Consciousness, No Dizziness, No Headache Psych : No Anxiety/Panic, No Depression, No SI/HI/AH/VH, No Social Issues, Heme/Lymph: No Bruising, No Bleeding,No Lymphadenopathy Endocrine : No Polyuria, No Polydipsia, No Temperature Intolerance PMFSH Past Medical History Medical History GERD (gastroesophageal reflux disease) Social History Social History Smoked in Last 30 Days: No Use of substances other than those prescribed or required for medical reasons: No Advance Directives: No Advance Directives Information Provided: Yes Do you have a plan to hurt others: No Plan Physical Exam Vital Signs: Vital Signs: Last Vital Signs Temp 0 F L 02/22/24 22:56 Pulse 0 L 02/22/24 22:56 Resp 0 L 02/22/24 22:56 BP 00/00 L 02/22/24 22:56 Pulse Ox 0 L 02/22/24 22:56 O2 Del Method Room Air 02/22/24 20:27 BMI result Body Mass Index 44.5 Const: Other: Appearance: Alert. Oriented X3. No acute distress. Eyes: Pupils equal, round and reactive to light. ENT: Pharynx normal. Neck: Normal inspection. Neck supple. No lymph nodes noted. No crepitus CVS: Normal heart rate and rhythm. Pulses normal. Normal S1 and S2 Respiratory: No respiratory distress. Breath sounds normal. No Wheezing. No rales Abdomen: Soft and nontender. No rigidity. No distention. Skin: Skin warm and dry. Normal skin color. Normal skin turgor. Extremities: No lower extremity edema. The left knee looks significantly swollen, there is fluctuation on palpation around the knee. Patient has an obvious effusion. Patient is able to bend the knee, no erythema, no pain out of proportion. Neuro: Oriented X 3. No motor deficit. No sensory deficit. Moving all extremities. No slurred speech. CN 2 through 12 grossly intact Psych: calm, cooperative, normal affect Course Course Course Narrative: This is a Rapid Medical Examination (RME) performed by Garrett Steen PA-C in [facility]. Full HPI, ROS, assessment and treatment plan per primary provider in the Main ED. 39 yo male presents to the ER for evaluation of left knee pain and swelling after he twisted it 1 week ago. Feels like there is liquid in the knee. ambulatory. Plan: XR knee Medications Administered Discontinued Medications Generic Name Dose Route Start Last Admin Trade Name Néstor PRN Reason Stop Dose Admin Lidocaine HCl 30 ml 02/22/24 21:20 02/22/24 22:11 Lidocaine Hcl 1 % 10 Ml Vial INFILTRATI 02/22/24 21:21 30 ml ONCE ONE Administration Oxycodone HCl 5 mg 02/22/24 22:33 02/22/24 22:53 Oxycodone Hcl Immed Release 5 Mg Tablet PO 02/22/24 22:34 5 mg ONCE ONE Administration Medical Decision Making Medical Decision Making [facility] Narrative: -patient has a good size knee effusion. Patient able to flex and extend the knee, no pain out of proportion, no fever, septic joint is not suspected. -I discussed with the patient that to alleviate the symptoms given the size of the knee effusion, patient would benefit from an arthrocentesis. Patient agrees with plan. -30 cc of clear yellow fluid were extracted, patient tolerated well the procedure. -can not given 1 dose of p.o. oxycodone -patient's white blood cell count of the synovial fluid is 400, very unlikely this would be an infection. Differential Diagnosis Differential Diagnoses: The differential diagnosis associated with the presentation includes (Joint effusion, septic joint, hemarthrosis) Lab Data Labs: Lab Results 02/22/24 Range/Units 22:45 Synovial Source knee Synovial WBC 0.494 X10*3/uL Synovial RBC < 0.002 X10*6/uL Procedures Joint Aspiration/Injection Joint Asp./Inject. 1: Time Out Performed: Yes Side of body: left Joint Aspirated: knee Ultrasound Guidance: No Skin Prep: Povidone-Iodine1% Local Anesthetic: lidocaine 1% Amount of anesthesia used (mL): 10 Needle Size Used: 18G Fluid Obtained: clear Total fluid obtained (mL): 31 Patient Tolerated Procedure: well and no complications Complications: none Discharge Plan Discharge Clinical Impression: Effusion of knee Patient Disposition: Home, Self-Care Instructions: Swollen Knee Joint (ED), Joint Aspiration (DC) Additional Instructions: Please follow-up with your primary care physician tomorrow. If you have any worsening or new symptoms, please return to the emergency room or call 911 Prescriptions: New tramadol 50 mg tablet 50 mg PO BID PRN (Reason: pain) Qty: 6 0RF ibuprofen 600 mg tablet 600 mg PO QID PRN (Reason: fever or pain) Qty: 20 0RF No Action sucralfate [Carafate] 1 gram tablet 1 g PO BID Qty: 14 0RF famotidine 20 mg tablet 20 mg PO DAILY Qty: 7 0RF cyclobenzaprine 10 mg tablet 10 mg PO TID PRN (Reason: muscle spasm) Qty: 20 0RF albuterol sulfate 90 mcg/actuation HFA aerosol inhaler 2 puff inhalation QID PRN (Reason: shortness of breath or wheezing) Qty: 6.7 0RF prednisone 20 mg tablet 40 mg PO DAILY 5 Days Qty: 10 0RF fluticasone propionate 50 mcg/actuation spray,suspension 1 spray intranasal DAILY PRN (Reason: allergy symptoms) Qty: 16 1RF Rx Instructions: administer into each nostril Stand Alone Forms: Work/School Release Interventions: ED Discharge Assessment Last Done: 02/22/24 22:56 Discharge Date/Time: 02/22/24 22:57 Print Language: Jamaican
[2024-02-22 20:27] VITALS: BP 122/88; PULSE 90; RESP 12; TEMP 37.1; O2SAT 97
--- NOTE | 2024-02-22 21:15 | PC.NURSE ---
Provider to bedside for primary eval.
[2024-02-22] MEDS: Lidocaine HCl 1 % 10 ML VIAL 30 ML INFILTRATI (22:11)
[2024-02-22 22:52] LABS: Source Synovial Fluid knee
[2024-02-22] MEDS: oxyCODONE HCl Immed Release 5 MG TABLET PO (22:53)
[2024-02-22 22:56] VITALS: BP 00/00; PULSE 0; RESP 0; TEMP -17.7; TEMP 0; O2SAT 0
[2024-02-22 22:57] LABS: WBC Synovial Fluid 0.494 X10*3/uL
[2024-02-22 22:59] LABS: RBC Synovial Fluid < 0.002 X10*6/uL
[2024-02-23 00:34] LABS: BF Shift QC OK YES; Lymphocytes Synovial Fluid 95 %; Monocytes Synovial Fluid 1 %; Neutrophils Synovial Fluid 4 %
[2024-02-24 11:23] LABS: Glucose Synovial Fluid 90; Total Protein Synovial Fluid 4.4
== END 2024-02-22 22:57 | disposition home or self-care (01) ==
PROVIDERS: Emergency Provider Emergency Medicine
DX: M25.462 Effusion, left knee (principal); M25.562 Pain in left knee; Z79.899 Other long term (current) drug therapy
CPT/HCPCS: 20610; 73564; 82945; 84157; 87070; 87073; 87205; 89051; 89060; 99284

== ENCOUNTER 2024-08-27 13:15 | Emergency (ER) | payer MEDICARE, MEDICAID, SELFPAY ==
--- NOTE | ~2024-08-27 | XR_ITS ---
CLINICAL HISTORY: fever, dizzy 2 view chest x-ray Comparison: CR/VA/SR - XR CHEST 1V - 01/07/24 09:58 EDT Findings: No consolidation or effusion. Heart size is normal. No acute fracture. IMPRESSION: 1. No acute findings. No infiltrate or consolidation. This document has been electronically signed by: Chelsey Mora DO on 08/27/2024 14:21:52
[2024-08-27 13:24] VITALS: BP 111/82; PULSE 100; RESP 18; TEMP 37.1; O2SAT 97; BMI 43.9
--- NOTE | 2024-08-27 13:24 | ED.GENADULT ---
HPI - General Adult General Chief complaint: Upper Respiratory Symptoms Stated complaint: fever, not feeling well Time Seen by Provider: 08/27/24 15:35 Source: patient, RN notes reviewed and old records reviewed Mode of arrival: ambulatory Limitations: no limitations History of Present Illness ED Provider: Chante [facility] [employer] narrative: Patient is a 39-year-old male with history of GERD presenting to the emergency department with complaint of headache, lightheadedness, fevers, fatigue, cough, body aches for the past 2 days. States his mother has been sick with similar symptoms and she recently traveled here from [place]. He denies any chest pain or palpitations. Denies any abdominal pain, nausea, vomiting, diarrhea. MD complaint: fever, body aches Onset (ago): day(s) Treatments prior to arrival: NSAID Related Data Previous Rx's ?Medication ?Instructions ?Recorded famotidine 20 mg tablet 20 mg PO DAILY #7 tabs 11/26/23 sucralfate 1 gram tablet (Carafate) 1 g PO BID #14 tabs 11/26/23 albuterol sulfate 90 mcg/actuation 2 puff inhalation QID PRN 01/07/24 aerosol inhaler shortness of breath or wheezing #6.7 grams cyclobenzaprine 10 mg tablet 10 mg PO TID PRN muscle spasm #20 01/07/24 tabs fluticasone propionate 50 1 spray intranasal DAILY PRN 01/07/24 mcg/actuation nasal allergy symptoms #16 grams spray,suspension prednisone 20 mg tablet 40 mg (2 x 20 mg) PO DAILY 5 days 01/07/24 #10 tabs ibuprofen 600 mg tablet 600 mg PO QID PRN fever or pain 02/22/24 #20 tabs tramadol 50 mg tablet 50 mg PO BID PRN pain #6 tabs 02/22/24 benzonatate 100 mg capsule 100 mg PO TID PRN cough #20 caps 08/27/24 Allergies Allergy/AdvReac Type Severity Reaction Status Date / Time shrimp Allergy Severe ANGIOEDEMA Verified 08/27/24 13:25 Review of Systems Review of Systems: As per HPI. Yes all other systems are reviewed and are negative Constitutional: Constitutional: Reports as per HPI PMF Past Medical History Medical History GERD (gastroesophageal reflux disease) Social History Social History Advance Directives: No Advance Directives Information Provided: Yes Physical Exam ED Vital Signs: Vital Signs - 24 hr 08/27/24 13:24 Temperature 98.7 F Pulse Rate 100 Respiratory Rate 18 Blood Pressure 111/82 Pulse Oximetry 97 Oxygen Delivery Method Room Air BMI result Body Mass Index 43.9 Vital signs have been reviewed and appear to be correct. Blood pressure normal. Heart rate normal. Respiratory rate normal. Temperature normal. Oxygen saturation normal. Const General: cooperative and no acute distress Orientation/consciousness: oriented to person, oriented to place, oriented to time and patient oriented x3 Limitations: no limitations HENMT Head: Yes normocephalic and Yes atraumatic Ears: external ears normal General nose exam: Normal external nose present Face and sinus: Yes face symmetric Mouth: oropharynx normal and moist mucous membranes Throat: Yes uvula midline Eyes Pupils: Equal, round and reactive pupils present Neck Neck: Yes normal visual inspection and Yes supple Resp Effort & Inspection: normal respiratory effort and able to speak in complete sentences Auscultation: clear to auscultation bilaterally Cardio Rate: regular rate Rhythm: regular rhythm Heart sounds: S1 normal heart sound present and S2 normal heart sound present GI Palpation (GI): Soft to palpation and nontender Auscultation: normoactive bowel sounds General: Yes no CVA tenderness Back/Spine/Pelvis Back: no CVA tenderness Skin General skin exam: elasticity normal and turgor normal Neuro General: oriented to person, oriented to place, oriented to time, patient oriented x3, moves all extremities, no focal motor deficits and CN's II-XI intact bilaterally Cranial nerves: Yes Equal, round and reactive pupils present Cognition (Neuro): normal cognition Extrem General: Yes full ROM, Yes no pedal edema and Yes no calf tenderness Psych Mental Status: mental status grossly normal Affect: normal affect Thought process: Normal thought process present Course Course Course Narrative: This is a Rapid Medical Examination (RME) performed by Kristine Ferris PA-C in triage. Full HPI, ROS, assessment and treatment plan per primary provider in the Main ED. 39 yo male here for eval of dizziness, headache, fever, and cough x3 days. took tylenol 40 mins [employer] in ED. mom at home similar w/ same symptoms after they both returned home from [place]. denies cp or SOB. Plan: viral swabs, CXR, labs, ekg Medical Decision Making Medical Decision Making [facility] Narrative: Patient is a 39-year-old male with history of GERD presenting to the emergency department with complaint of headache, lightheadedness, fevers, fatigue, cough, body aches for the past 2 days. On exam patient is awake, A+Ox3, VS WNL, afebrile, normal neurological exam without focal deficits, physical exam findings as above. Given reported symptoms and physical exam findings, initial differential includes but is not limited to viral illness, COVID, flu, RSV, bronchitis, pneumonia. Labs unremarkable. X-ray chest notable for no evidence of pneumonia. My interpretation is in agreement with the radiologist's interpretation. EKG shows normal sinus rhythm. Viral serology positive for influenza A. Patient updated on results and all questions answered. Advised Tylenol and ibuprofen for fever, advised patient to ensure adequate fluid intake and adequate rest. Discussed with patient that he should isolate at home for the next 4 days. He should wear a mask while symptomatic after that. Follow up with PCP as needed. Return precautions discussed at bedside. Patient verbalized understanding of and agreement with plan. Differential Diagnosis Differential Diagnoses: The differential diagnosis associated with the presentation includes As per [facility] Admission/Observation Consideration of admission/observation: Escalation of care including admission/observation considered Patient would have been admitted to the hospital had their work up had any findings where hospital admission was appropriate and their clinical presentation warranted hospital admission. Lab Data [facility] Lab Attestation statement: I reviewed the patient's lab results. As per [facility] 08/27/24 13:56 08/27/24 13:56 Labs: Lab Results 08/27/24 Range/Units 13:56 WBC 5.7 (4.8-10.8) X10*3/uL RBC 4.65 (4.60-5.80) X10*6/uL Hgb 13.5 L (14.0-18.0) g/dl Hct 39.8 L (42.0-52.0) % MCV 85.6 (80.0-98.0) fL MCH 29.0 (27.0-33.0) pg MCHC 33.9 (31.0-36.0) g/dl RDW 13.0 (11.0-16.0) % Plt Count 218 (160-400) X10*3/uL MPV 10.2 (9.4-12.4) fL Immature Gran % (Auto) 0.2 (0.0-0.4) % Neut % (Auto) 73.6 H (45-73) % Lymph % (Auto) 11.6 L (20-40) % Rich % (Auto) 12.3 H (2-11) % Eos % (Auto) 1.9 (0-4) % Baso % (Auto) 0.4 (0-2) % Lymph # (Auto) 0.7 L (1.2-4.9) X10*3/uL Rich # (Auto) 0.7 (0.1-1.2) X10*3/uL Eos # (Auto) 0.1 (0.0-0.4) X10*3/uL Baso # (Auto) 0.0 (0.0-0.2) X10*3/uL Abs Immat Gran (auto) 0.01 (0.00-0.03) X10*3/uL Absolute Neuts (auto) 4.2 (2.0-8.3) x10*3/uL Absolute Nucleated RBC 0.000 (0.0-0.012) X10*3/uL Nucleated RBC % (auto) 0.0 (0.0-0.2) /100WBC Sodium 136 (135-145) mmol/L Potassium 3.7 (3.3-5.1) mmol/L Chloride 107 (96-108) mmol/L Carbon Dioxide 23 (22-29) mmol/L Anion Gap 10 L (12-20) BUN 9 (9-16) mg/dL Creatinine 0.77 (0.5-1.4) mg/dL Estim Creat Clear Calc 156.0 Estimated GFR > 60 Random Glucose 110 (60-115) mg/dL Calcium 8.6 (8.4-10.2) mg/dL Magnesium 1.8 (1.6-2.6) mg/dL Total Bilirubin 0.5 (0.0-1.0) mg/dL AST 26 (5-37) U/L ALT 23 (0-40) U/L Alkaline Phosphatase 116 (39-117) U/L Total Protein 8.0 (6.5-8.0) g/dL Albumin 3.8 (3.5-5.0) g/dL Influenza Type A (PCR) POSITIVE A (Negative) Influenza Type B (PCR) NEGATIVE (Negative) RSV RNA Qual (PCR) NEGATIVE (Negative) SARS-CoV-2 RNA (RT-PCR) NEGATIVE (Negative) Independent Interpretation I performed an independent interpretation of an: Plain X-Ray Interpretation: No evidence of pneumonia on chest x-ray Radiology Impression Discussion of test interpretation with radiology: I have reviewed the radiologist's reading. Radiologist Impression: Findings: No consolidation or effusion. Heart size is normal. No acute fracture. IMPRESSION: 1. No acute findings. No infiltrate or consolidation. External Record Review External record reviewed: Inpatient record, Office record and Outpatient record Prescription Management I considered prescription management with: Other Discharge Plan Discharge Clinical Impression: Influenza Patient Disposition: Home, Self-Care Instructions: Influenza (DC), Flu Shot (Vaccine) for Adults (ED) Additional Instructions: You were evaluated in the emergency department today for fever, body aches and cough. Your flu test was positive. You should isolate at home for another 4 days and continue to wear a mask while symptomatic after that. Your symptoms should resolve over time with rest and fluids. You can take 650 mg Tylenol or 600 mg ibuprofen every 6 hours as needed for fever or pain. Please follow-up with your primary care provider for any ongoing symptoms. Return to the emergency department if you develop worsening pain, fever not controlled with Tylenol and ibuprofen, chest pain, dizziness or lightheadedness, or any other concerning symptoms. Prescriptions: New benzonatate 100 mg capsule 100 mg PO TID PRN (Reason: cough) Qty: 20 0RF No Action sucralfate [Carafate] 1 gram tablet 1 g PO BID Qty: 14 0RF famotidine 20 mg tablet 20 mg PO DAILY Qty: 7 0RF cyclobenzaprine 10 mg tablet 10 mg PO TID PRN (Reason: muscle spasm) Qty: 20 0RF albuterol sulfate 90 mcg/actuation HFA aerosol inhaler 2 puff inhalation QID PRN (Reason: shortness of breath or wheezing) Qty: 6.7 0RF prednisone 20 mg tablet 40 mg PO DAILY 5 Days Qty: 10 0RF fluticasone propionate 50 mcg/actuation spray,suspension 1 spray intranasal DAILY PRN (Reason: allergy symptoms) Qty: 16 1RF Rx Instructions: administer into each nostril tramadol 50 mg tablet 50 mg PO BID PRN (Reason: pain) Qty: 6 0RF ibuprofen 600 mg tablet 600 mg PO QID PRN (Reason: fever or pain) Qty: 20 0RF Stand Alone Forms: Work/School Release Print Language: Belarusian
--- NOTE | 2024-08-27 13:26 | ECG_ITS ---
Test Reason : DIZZINESS Blood Pressure : */* mmHG Vent. Rate : 95 BPM Atrial Rate : 95 BPM P-R Int : 130 ms QRS Dur : 74 ms QT Int : 332 ms P-R-T Axes : 23 22 19 degrees QTcB Int : 417 ms Normal sinus rhythm Normal ECG When compared with ECG of 07-Jan-2024 09:30, No significant change was found Referred By: Theresa Ferris Electronically Signed By: PATRICIA ALVARES MD
[2024-08-27 14:02] LABS: MANUAL DIFF FLAG NO
[2024-08-27 14:03] LABS: Basophils Percent Auto 0.4 % (0-2); Eosinophils Absolute Auto 0.1 X10*3/uL (0.0-0.4); Eosinophils Percent Auto 1.9 % (0-4); Hematocrit 39.8 % (42.0-52.0); Hemoglobin 13.5 g/dl (14.0-18.0); Imm Gran Abs Auto 0.01 X10*3/uL (0.00-0.03); Imm Gran Pct Auto 0.2 % (0.0-0.4); Lymphocytes Absolute Auto 0.7 X10*3/uL (1.2-4.9); Lymphocytes Percent Auto 11.6 % (20-40); Mean Corpuscular HGB Conc 33.9 g/dl (31.0-36.0); Mean Corpuscular Volume 85.6 fL (80.0-98.0); Mean Platelet Volume 10.2 fL (9.4-12.4); Monocytes Absolute Auto 0.7 X10*3/uL (0.1-1.2); Monocytes Percent Auto 12.3 % (2-11); Neutrophils Absolute Auto 4.2 x10*3/uL (2.0-8.3); Neutrophils Percent Auto 73.6 % (45-73); Platelet Count 218 X10*3/uL (160-400); Red Blood Count 4.65 X10*6/uL (4.60-5.80); White Blood Count 5.7 X10*3/uL (4.8-10.8)
[2024-08-27 14:17] LABS: Alanine Aminotransferase 23 U/L (0-40); Albumin Level 3.8 g/dL (3.5-5.0); Alkaline Phosphatase 116 U/L (39-117); Anion Gap 10 (12-20); Aspartate Amino Transferase 26 U/L (5-37); Bilirubin Total 0.5 mg/dL (0.0-1.0); Blood Urea Nitrogen 9 mg/dL (9-16); Calcium 8.6 mg/dL (8.4-10.2); Carbon Dioxide 23 mmol/L (22-29); Chloride 107 mmol/L (96-108); Estimated Glomerular Filt Rate > 60; Glucose Random 110 mg/dL (60-115); Magnesium 1.8 mg/dL (1.6-2.6); Potassium 3.7 mmol/L (3.3-5.1); Sodium 136 mmol/L (135-145)
[2024-08-27 15:11] LABS: Influenza A PCR POSITIVE (Negative); Influenza B PCR NEGATIVE (Negative); Resp Syncy Virus RNA Qual PCR NEGATIVE (Negative); SARS COV2 PCR INHOUSE NEGATIVE (Negative)
[2024-08-27 16:19] VITALS: BP 111/82; PULSE 100; RESP 18; TEMP 37.1; O2SAT 97
== END 2024-08-27 16:19 | disposition home or self-care (01) ==
PROVIDERS: Physician Assistant Medical; Emergency Provider Emergency Medicine
DX: J10.1 Influenza due to other identified influenza virus with other respiratory manifestations (principal); R50.9 Fever, unspecified; R51.9 Headache, unspecified; R05.9 Cough, unspecified; M79.10 Myalgia, unspecified site; Z03.818 Encounter for observation for suspected exposure to other biological agents ruled out
CPT/HCPCS: 0241U; 71046; 80053; 83735; 85025; 93005; 99283

== ENCOUNTER → 2024-08-27 13:26 | Outpatient (BNV) | payer MEDICARE, MEDICAID, SELFPAY | PROVIDERS: Visit Provider Radiology Diagnostic Radiology | DX: R50.9 Fever, unspecified (principal) | CPT/HCPCS: 71046 ==

== ENCOUNTER → 2024-08-27 13:26 | Outpatient (BNV) | payer MEDICARE, MEDICAID, SELFPAY | PROVIDERS: Emergency Provider Emergency Medicine; Visit Provider Internal Medicine Cardiovascular Disease | DX: R42 Dizziness and giddiness (principal) | CPT/HCPCS: 93010 ==

== ENCOUNTER 2025-08-07 15:41 | Emergency (ER) | payer MEDICARE, MEDICAID, SELFPAY ==
--- NOTE | ~2025-08-07 | US_ITS ---
CLINICAL HISTORY: RUQ epigastric ttp --- Additional Notes or Special Instructions: GB CBD only per ordering provider - US abdomen limited Comparison: US - ABDOMEN ULTRASOUND [id number] - 08/13/19 15:58 EST Findings: The liver is normal in size and echotexture. There is no intrahepatic bile duct dilatation. The common duct is 3 mm in diameter. The gallbladder is normal. There is no sonographic Dimas sign. The main portal vein is antegrade. IMPRESSION: Gallbladder is within normal limits. No evidence of intra or extrahepatic ductal dilation. This document has been electronically signed by: Tom Nicolas MD on 08/07/2025 19:46:34
[2025-08-07 16:06] VITALS: BP 118/57; PULSE 91; RESP 18; TEMP 36.4; O2SAT 98; BMI 47.7
--- NOTE | 2025-08-07 16:06 | ED.ABDPAIN ---
HPI - Abdominal Pain General Chief Complaint: Nausea/Vomiting/Diarrhea Stated Complaint: vomiting/diarrhea Time Seen by Provider: 08/08/25 01:35 Source: patient Limitations: no limitations History of Present Illness ED Provider: Nicole Diallo PA-C HPI narrative: 40-year-old male with a history of GERD and morbid obesity, presents with nausea vomiting diarrhea since earlier this morning. Associated burning epigastric discomfort, loose watery stools with nausea vomiting. Patient states his mother is sick with similar symptoms. Denies cough cold symptoms or fever. No recent travel, hospitalization or use of antibiotics. Related Data Previous Rx's ?Medication ?Instructions ?Recorded famotidine 20 mg tablet 20 mg PO DAILY #7 tabs 11/26/23 sucralfate 1 gram tablet (Carafate) 1 g PO BID #14 tabs 11/26/23 albuterol sulfate 90 mcg/actuation 2 puff inhalation QID PRN 01/07/24 aerosol inhaler shortness of breath or wheezing #6.7 grams cyclobenzaprine 10 mg tablet 10 mg PO TID PRN muscle spasm #20 01/07/24 tabs fluticasone propionate 50 1 spray intranasal DAILY PRN 01/07/24 mcg/actuation nasal allergy symptoms #16 grams spray,suspension prednisone 20 mg tablet 40 mg (2 x 20 mg) PO DAILY 5 days 01/07/24 #10 tabs ibuprofen 600 mg tablet 600 mg PO QID PRN fever or pain 02/22/24 #20 tabs tramadol 50 mg tablet 50 mg PO BID PRN pain #6 tabs 02/22/24 benzonatate 100 mg capsule 100 mg PO TID PRN cough #20 caps 08/27/24 dicyclomine 20 mg tablet 20 mg PO BID PRN abdominal pain #7 08/08/25 tabs ondansetron HCl 4 mg tablet 4 mg PO Q8H PRN nausea and 08/08/25 vomiting #10 tabs sucralfate 1 gram tablet (Carafate) 1 g PO TID PRN dyspepsia #10 tabs 08/08/25 Allergies Allergy/AdvReac Type Severity Reaction Status Date / Time shrimp Allergy Severe ANGIOEDEMA Verified 08/07/25 16:07 Review of Systems Review of Systems Yes all other systems are reviewed and are negative Constitutional: Reports fatigue, Denies fever(s) and Reports malaise Cardiovascular: Denies chest pain and Denies dyspnea Respiratory: Denies cough and Denies dyspnea Gastrointestinal: Reports abdominal pain, Reports dyspepsia, Reports heartburn, Reports diarrhea, Reports nausea and Reports vomiting Endocrine: Reports fatigue PMFSH Past Medical History Attestation statement: The following information was validated with the patient. Medical History GERD (gastroesophageal reflux disease) Social History Social History Advance Directives: No Advance Directives Information Provided: No Do you have a plan to hurt others: No Plan Physical Exam ED Vital Signs: Vital Signs - 24 hr 08/07/25 16:06 08/07/25 22:03 08/08/25 02:53 Temperature 97.6 F 97.8 F Pulse Rate 91 80 70 Respiratory Rate 18 16 20 Blood Pressure 118/57 L 100/66 111/62 Pulse Oximetry 98 100 95 Oxygen Delivery Method Room Air Room Air Room Air BMI result Body Mass Index 47.7 Const Other: Alert well-appearing Orientation/consciousness: patient oriented x3 Resp Effort & Inspection: normal respiratory effort Cardio Other: Normal peripheral perfusion GI Other: Soft nondistended, obese abdomen nontender to palpation no guarding Skin Other: Warm dry no rash Neuro General: patient oriented x3, gait normal, no focal motor deficits and CN's II-XI intact bilaterally Psych Other: Cooperative Course Course Course Narrative: This is a Rapid Medical Exam performed in triage by Sloane Long PA-C. Full HPI, ROS and PE to be performed by primary ED provider. 40-year-old male with a past medical history of GERD presenting to the ED c/o epigastric abdominal pain, back pain, N/V x3 AM. Mother here with similar sx. +watery diarrhea PE: Abdomen is soft with epigastric/RUQ tenderness, no rebound or guarding Plan: Labs, UA, US Medical Decision Making Medical Decision Making MDM Narrative: 40-year-old male with a history of GERD and morbid obesity, presents with nausea vomiting diarrhea since earlier this morning. Associated burning epigastric discomfort, loose watery stools with nausea vomiting. Patient states his mother is sick with similar symptoms. Denies cough cold symptoms or fever. No recent travel, hospitalization or use of antibiotics. Problem: GERD History: Per patient I have considered the following differential diagnoses: Biliary colic, cholecystitis, GERD / gastritis, viral gastroenteritis, C diff, traveler's diarrhea Plan: Screening labs including ultrasound of the right upper quadrant ordered from triage. Apparently the patient's symptoms began after eating [employer], LFTs normal, there was no evidence of cholecystitis, no concern for biliary colic. The patient has a risk factors for C diff or traveler's diarrhea, this is viral gastroenteritis, his mother is sick with same symptoms. We will provide symptomatic relief. He does not require advanced imaging I have independently reviewed the following tests: Labs: No overall leukocytosis, left shift noted, no electrolyte abnormality, viral panel negative, no elevation of LFTs lipase known Ultrasound right upper quadrant:The liver is normal in size and echotexture. There is no intrahepatic bile duct dilatation. The common duct is 3 mm in diameter. The gallbladder is normal. There is no sonographic Dimas sign. The main portal vein is antegrade. IMPRESSION: Gallbladder is within normal limits. No evidence of intra or extrahepatic ductal dilation. Differential Diagnosis Differential Diagnoses: The differential diagnosis associated with the presentation includes See [facility] Admission/Observation Consideration of admission/observation: Escalation of care including admission/observation considered Not applicable Lab Data [facility] Lab Attestation statement: I reviewed the patient's lab results. 08/07/25 17:36 08/07/25 17:36 Labs: Lab Results 08/07/25 Range/Units 17:36 WBC 10.1 (4.8-10.8) X10*3/uL RBC 5.15 (4.60-5.80) X10*6/uL Hgb 14.8 (14.0-18.0) g/dl Hct 45.4 (42.0-52.0) % MCV 88.2 (80.0-98.0) fL MCH 28.7 (27.0-33.0) pg MCHC 32.6 (31.0-36.0) g/dl RDW 12.9 (11.0-16.0) % Plt Count 250 (160-400) X10*3/uL MPV 10.3 (9.4-12.4) fL Immature Gran % (Auto) 0.2 (0.0-0.4) % Neut % (Auto) 78.5 H (45-73) % Lymph % (Auto) 13.3 L (20-40) % [place] % (Auto) 4.3 (2-11) % Eos % (Auto) 3.1 (0-4) % Baso % (Auto) 0.6 (0-2) % Lymph # (Auto) 1.4 (1.2-4.9) X10*3/uL [place] # (Auto) 0.4 (0.1-1.2) X10*3/uL Eos # (Auto) 0.3 (0.0-0.4) X10*3/uL Baso # (Auto) 0.1 (0.0-0.2) X10*3/uL Abs Immat Gran (auto) 0.02 (0.00-0.03) X10*3/uL Absolute Neuts (auto) 7.9 (2.0-8.3) x10*3/uL Absolute Nucleated RBC 0.000 (0.0-0.012) X10*3/uL Nucleated RBC % (auto) 0.0 (0.0-0.2) /100WBC Sodium 142 (135-145) mmol/L Potassium 3.8 (3.3-5.1) mmol/L Chloride 110 H (96-108) mmol/L Carbon Dioxide 25 (22-29) mmol/L Anion Gap 11 L (12-20) BUN 16 (9-16) mg/dL Creatinine 0.74 (0.5-1.4) mg/dL Estim Creat Clear Calc 168.5 Estimated GFR > 60 Random Glucose 96 (60-115) mg/dL Calcium 9.0 (8.4-10.2) mg/dL Magnesium 2.0 (1.6-2.6) mg/dL Total Bilirubin 0.8 (0.0-1.0) mg/dL Direct Bilirubin 0.3 (0.0-0.5) mg/dL AST 26 (5-37) U/L ALT 29 (0-40) U/L Alkaline Phosphatase 140 H (39-117) U/L Total Protein 7.9 (6.5-8.0) g/dL Albumin 4.5 (3.5-5.0) g/dL Lipase 20 (8-78) U/L Influenza Type A (PCR) NEGATIVE (Negative) Influenza Type B (PCR) NEGATIVE (Negative) RSV RNA Qual (PCR) NEGATIVE (Negative) SARS-CoV-2 RNA (RT-PCR) NEGATIVE (Negative) Radiology Impression Discussion of test interpretation with radiology: I have reviewed the radiologist's reading. Medications Administered Discontinued Medications Generic Name Dose Route Start Last Admin Trade Name Freq PRN Reason Stop Dose Admin Dicyclomine HCl 20 mg 08/08/25 01:37 08/08/25 01:55 Dicyclomine Hcl 10 Mg Capsule PO 08/08/25 01:38 20 mg ONCE ONE Administration Famotidine 20 mg 08/08/25 01:37 08/08/25 01:58 Famotidine/Pf 20 Mg/2 Ml Vial IVPUSH 08/08/25 01:38 20 mg ONCE ONE Administration Sodium Chloride 1,000 mls @ 999 mls/hr 08/08/25 01:45 08/08/25 02:56 Ns IV 08/08/25 02:45 Infused .Q1H1M IGNACIA Infusion Ketorolac Tromethamine 15 mg 08/08/25 01:37 08/08/25 01:55 Ketorolac Tromethamine 15 Mg/Ml Vial IVPUSH 08/08/25 01:38 15 mg ONCE ONE Administration Ondansetron HCl 4 mg 08/08/25 01:37 08/08/25 01:56 Ondansetron Hcl 4 Mg/2 Ml Vial IVPUSH 08/08/25 01:38 4 mg ONCE ONE Administration Discharge Plan Discharge Clinical Impression: Gastroenteritis Patient Disposition: Home, Self-Care Instructions: Gastroenteritis (ED) Additional Instructions: You are being treated for viral gastroenteritis. See home care instructions. Use the dicyclomine for abdominal cramping. Use the Carafate for dyspepsia. Uses Zofran as needed for nausea. Use the dicyclomine as needed for abdominal pain and cramping. You had no lab abnormalities today. The ultrasound of your abdomen was normal. Follow up with primary care as needed. Prescriptions: New sucralfate [Carafate] 1 gram tablet 1 g PO TID PRN (Reason: dyspepsia) Qty: 10 0RF ondansetron HCl 4 mg tablet 4 mg PO Q8H PRN (Reason: nausea and vomiting) Qty: 10 0RF dicyclomine 20 mg tablet 20 mg PO BID PRN (Reason: abdominal pain) Qty: 7 0RF No Action sucralfate [Carafate] 1 gram tablet 1 g PO BID Qty: 14 0RF famotidine 20 mg tablet 20 mg PO DAILY Qty: 7 0RF benzonatate 100 mg capsule 100 mg PO TID PRN (Reason: cough) Qty: 20 0RF cyclobenzaprine 10 mg tablet 10 mg PO TID PRN (Reason: muscle spasm) Qty: 20 0RF albuterol sulfate 90 mcg/actuation HFA aerosol inhaler 2 puff inhalation QID PRN (Reason: shortness of breath or wheezing) Qty: 6.7 0RF prednisone 20 mg tablet 40 mg PO DAILY 5 Days Qty: 10 0RF fluticasone propionate 50 mcg/actuation spray,suspension 1 spray intranasal DAILY PRN (Reason: allergy symptoms) Qty: 16 1RF Rx Instructions: administer into each nostril tramadol 50 mg tablet 50 mg PO BID PRN (Reason: pain) Qty: 6 0RF ibuprofen 600 mg tablet 600 mg PO QID PRN (Reason: fever or pain) Qty: 20 0RF Stand Alone Forms: Work/School Release Print Language: Italian
[2025-08-07 17:44] LABS: MANUAL DIFF FLAG NO
[2025-08-07 17:48] LABS: Hematocrit 45.4 % (42.0-52.0); Hemoglobin 14.8 g/dl (14.0-18.0); Imm Gran Abs Auto 0.02 X10*3/uL (0.00-0.03); Imm Gran Pct Auto 0.2 % (0.0-0.4); Lymphocytes Absolute Auto 1.4 X10*3/uL (1.2-4.9); Mean Corpuscular HGB Conc 32.6 g/dl (31.0-36.0); Mean Corpuscular Hemoglobin 28.7 pg (27.0-33.0); Mean Corpuscular Volume 88.2 fL (80.0-98.0); NRBC Abs Auto 0.000 X10*3/uL (0.0-0.012); NRBC Pct Auto 0.0 /100WBC (0.0-0.2); Platelet Count 250 X10*3/uL (160-400); Red Blood Count 5.15 X10*6/uL (4.60-5.80); White Blood Count 10.1 X10*3/uL (4.8-10.8)
[2025-08-07 18:00] LABS: Alanine Aminotransferase 29 U/L (0-40); Albumin Level 4.5 g/dL (3.5-5.0); Alkaline Phosphatase 140 U/L (39-117); Anion Gap 11 (12-20); Aspartate Amino Transferase 26 U/L (5-37); Blood Urea Nitrogen 16 mg/dL (9-16); Calcium 9.0 mg/dL (8.4-10.2); Carbon Dioxide 25 mmol/L (22-29); Chloride 110 mmol/L (96-108); Creatinine Clr Calc Pharmacy 168.5; Estimated Glomerular Filt Rate > 60; Lipase 20 U/L (8-78); Magnesium 2.0 mg/dL (1.6-2.6); Potassium 3.8 mmol/L (3.3-5.1); Sodium 142 mmol/L (135-145); Total Protein 7.9 g/dL (6.5-8.0)
[2025-08-07 18:27] LABS: Resp Syncy Virus RNA Qual PCR NEGATIVE (Negative); SARS COV2 PCR INHOUSE NEGATIVE (Negative)
--- OUTSIDE RECORDS SUMMARY | 2025-08-07 19:14 | XMS_ITS | Encounter Summary ---
Author Organization [facility] Address [address] [place] [address] Phone Care Team Providers Care Gizzard Peeler Name Role Phone Derek Cuellar MD Primary Care Provider [phone] Encounter Details Date Type Department Care Team (Late st Contact Info) Description 04/05/2023 Procedure Pass [facility], [facility] [address] [place] [address] Social History Tobacco Use Types Packs/Day Years Used Date Smoking Tobacco: Former Smokeless Tobacco: Never Alcohol Use Standard Drinks/Week Comments Not Currently 0 (1 standard drink = 0.6 oz pur e alcohol) Education Answer Date Recorded Are you interested in more education? Not on sam e 12/04/2022 Are you concerned about learning? Not on file 12/04/2022 No 12/04/2022 No 12/04/2022 Digital Access Answer Date Recorded No 01/01/2023 No 01/01/2023 Reliable internet access at home? Not on file 01/01/2023 Device with a working camera? Not on file Intimate Partner Violence Answer Date R ecorded Are you denied basic needs s uch as food, clothing, or medical care? No 02/09/2023 In the past 12 months have y ou been in a relationship with a person who hurts, threatens, or tries to control you? No 02/09/2023 Are you denied basic needs s uch as food, clothing, or medical care? No 02/09/2023 In the past 12 months have y ou been in a relationship with a person who hurts, threatens, or tries to control you? No 02/09/2023 Sex and Gender Information Value Date Recorded Sex Assigned at Male 02/08/2021 11:15 AM EDT Legal Sex Male 9:13 PM EDT Gender Identity Male 02/08/2021 11:15 AM EDT Sexual Orientation Lesbian or [place] 02/08/2021 11 :15 AM EDT documented as of this encounter Plan of Treatment Not on file documented as of this encounter Visit Diagnoses Not on filedocumented in this encounter Care Teams Gizzard Peeler Relationship Specialty Start Date End Date Derek Cuellar MD [address] [place] [id number] [email or web address] PCP - General Internal Medicine 02/08/21 documented as of this encounter Additional Source Comments The information contained in this document represents components of the legal health record. It is not the complete legal health record.[facility]
--- OUTSIDE RECORDS SUMMARY | 2025-08-07 19:14 | XMS_ITS | Clinical Summary ---
Author Organization [facility] Address [address] [place] [address] Phone Care Team Providers Care Physician Aide Name Role Phone Derek Cuellar MD Primary Care Provider [phone]- [phone] Allergies No known active allergies Medications No known medications Social History Tobacco Use Types Packs/Day Years [...] or [place] 02/08/2021 11 :15 AM EDT Last Filed Vital Signs Vital Sign Reading Time Taken Comments Blood Pressure 128/76 02/09/2023 11:46 AM EDT Pulse 72 02/09/2023 11:46 AM EDT Temperature 36.7 C (98.1 F) 02/09/2023 9:59 AM EDT Respiratory Rate 20 02/09/2023 11:46 AM EDT Oxygen Saturation 96% 02/09/2023 11:46 AM EDT Inhaled Oxygen Concentration - - Weight 120.2 kg (265 lb) 02/09/2023 9:59 AM EDT Height 165.1 cm (5' 5 ) 02/09/2023 9:59 AM EDT Body Mass Index 44.1 02/09/2023 9:59 AM EDT Plan of Treatment Health Maintenance Due Date Last Done Comments Adult Td,Tdap Booster 1986 LIPID PANEL 1986 DEPRESSION SCREENING 1998 SMOKING Hx and SMOKELESS TOB ACCO SCREENING 1999 HEPATITIS C SCREENING 01/28/2004 HIV ONE-TIME SCREENING (18-6 5 YEARS) 01/28/2004 INFLUENZA VACCINE (#1) 2025 COVID-19 VACCINE ( - 2024-2 6 season) 2025 SCREENING FOR DIABETES 02/09/2026 02/09/2023 HEPATITIS A VACCINES Aged Out No long er eligible based on patient's age to complete this topic HIB VACCINES Aged Out No longer eligi ble based on patient's age to complete this topic MENINGOCOCCAL VACCINES (ACWY) Aged Out No longer eligible based on patient's age to complete this topic MENINGOCOCCAL VACCINES (B) Aged Out N o longer eligible based on patient's age to complete this topic PNEUMOCOCCAL VACCINES (0-49 years) Aged Out No longer eligible based on patient's age to complete this topic Medical Devices Not on file Insurance MEDICARE PART A & [place] [facility] B HEALTH MEDICARE PART A & B [facility] [place] Care Teams Physician Aide Relationship Specialty Start Date End Date Derek Cuellar MD [address] [place] [address] [place] [id number] [email or web address] PCP - General Internal Medicine 02/08/21 Additional Source Comments The information contained in this document represents components of the legal health record. It is not the complete legal health record.[facility]
--- OUTSIDE RECORDS SUMMARY | 2025-08-07 19:14 | XMS_ITS | Encounter Summary ---
Author Organization [facility] Address [address] [place] [address] Phone Care Team Providers Care Medical Administrative Name Role Phone Derek Cuellar MD Primary Care Provider [phone]- [phone] Encounter Details Date Type Department Care Team (Late st Contact Info) Description 04/01/2023 Procedure Pass [facility], [facility] [address] [place] [address] Social History Tobacco Use Types Packs/Day Years [...] on filedocumented in this encounter Care Teams Medical Administrative Relationship Specialty Start Date End Date Derek Cuellar MD [address] [place] [id number] [email or web address] PCP - General Internal Medicine 02/08/21 documented as of this encounter Additional Source Comments The information contained in this document represents components of the legal health record. It is not the complete legal health record.[facility]
[2025-08-07 22:03] VITALS: BP 100/66; PULSE 80; RESP 16; TEMP 36.6; O2SAT 100
[2025-08-08 02:53] VITALS: BP 111/62; PULSE 70; RESP 20; O2SAT 95
[2025-08-08 03:45] VITALS: BP 98/61; PULSE 64; RESP 20; TEMP 36.9; O2SAT 96
--- NOTE | 2025-08-08 03:55 | PC.NURSE ---
Reviewd discharge instructions with pt. pt verbalized understanding, Iv removed, no sign of distress upon discharge.
[2025-08-08 03:56] VITALS: BP 98/61; PULSE 64; RESP 20; TEMP 36.9; O2SAT 96
== END 2025-08-08 03:56 | disposition home or self-care (01) ==
PROVIDERS: Physician Assistant; Emergency Provider Emergency Medicine; PCP Internal Medicine
DX: K52.9 Noninfective gastroenteritis and colitis, unspecified (principal); R11.2 Nausea with vomiting, unspecified; R53.83 Other fatigue; Z03.818 Encounter for observation for suspected exposure to other biological agents ruled out
CPT/HCPCS: 76705; 80048; 80076; 83690; 83735; 85025; 87637; 96361; 96374; 96375; 99285; J1308; J1885; J2405

== ENCOUNTER → 2025-08-07 16:10 | Outpatient (BNV) | payer MEDICARE, MEDICAID, SELFPAY | PROVIDERS: PCP Internal Medicine; Visit Provider Student in an Organized Health Care Education/Training Program | DX: R10.11 Right upper quadrant pain (principal); R10.13 Epigastric pain | CPT/HCPCS: 76705 ==